=== PATIENT | female | born 1970 | race Hispanic/Latino ===

== ENCOUNTER → 2025-04-14 | Outpatient (CLI) | payer OTHER ==
--- NOTE | 2025-04-15 11:07 | HMCIMG ---
EXAM: CT Cardiac calcium scoring. CLINICAL HISTORY: Screening. TECHNIQUE: Thin collimated axial CT cardiac images were obtained. A CT scan is done according to ALARA (As Low As Reasonably Achievable). CONTRAST: None. COMPARISON: None provided. FINDINGS: Calcium Score: VESSEL Number of lesions Volume mm3 Equi. Mass/mg Calcium score LM 0 0 - 0 LAD 1 61.0 - 84.7 LCX 0 0 - 0 RCA 2 17.4 - 25.9 Total 3 0 - 110.6 IMPRESSION: The total calcium score is 110.6. 79th percentile. There is a 2.0 x 1.0 cm right cardiophrenic lymph node. /[place]
== END | disposition home or self-care (01) ==
LOC: RAH 13:06
PROVIDERS: ATTEND Internal Medicine Cardiovascular Disease
DX: Z13.6 Encounter for screening for cardiovascular disorders (principal)
CPT/HCPCS: 75571